=== PATIENT | female | born 1950 | race Caucasian/White ===

== ENCOUNTER → 2018-12-26 | Outpatient (CLI) | payer MEDICARE, OTHER ==
[~2018-12-26] MED LIST: LIDOCAINE HCL 1% LOCAL INJ 20 ML VIAL ONE
--- NOTE | 2018-12-26 14:36 | Diagnostic Imaging Report ---
Ultrasound guided parotid mass FNA and biopsy. History: Right parotid mass. Comparison: None available. EBL: <2 cc. Specimen: 2 FNA and 3 core samples given to pathology. Discussion: Transverse and longitudinal images of the right parotid were obtained demonstrating oval solid hypoechoic mass measuring 3.7 cm. After informed consent was obtained, the site was prepped and draped in a sterile fashion. The skin was anesthetized with 1% lidocaine without epinephrine. Using ultrasound guidance, the right upper lobe mass was aspirated using 25-gauge needles x2. Samples were given to pathology. Additional sampling with an 18-gauge core biopsy gun was performed x3. Touch prep with the first core sample was performed. Remaining samples were placed in formalin. The patient tolerated procedure well without evidence of immediate complication. IMPRESSION: Successful ultrasound guided FNA and core biopsy of right parotid mass. Signed by: Charles Jerome on 12/26/2018 2:32 PM
== END ==
LOC: US 12:55
PROVIDERS: ATTEND Otolaryngology
DX: R22.1 Localized swelling, mass and lump, neck (principal)
CPT/HCPCS: 10005; 88112; 88172; 88173; 88305; J2001; 88342